=== PATIENT | male | born 1965 | race Caucasian/White ===

== ENCOUNTER → 2018-06-10 | Outpatient (CLI) | payer OTHER ==
[~2018-06-10] MED LIST: ISOVUE-370 76% 100ML VIAL (Q9967) As Ordered
== END ==
LOC: M RAD 15:38
DX: I70.0 Atherosclerosis of aorta (principal); K55.9 Vascular disorder of intestine, unspecified; I10 Essential (primary) hypertension
CPT/HCPCS: Q9967

== ENCOUNTER 2018-10-07 10:31 | Day surgery (SDC) | payer OTHER ==
[~2018-10-07] VITALS: Ht 182.9 cm; Wt 111.6 kg
[~2018-10-07 10:31] MED LIST changes: +ASPI81TA85 PO; +CRES5TAB PO; +FISH7.5C PO; -ISOVUE-370 76% 100ML VIAL (Q9967) As Ordered; +LIDOCAINE 2% INJ 100 MG/5 ML SDV (FOR ANES.) As Ordered ONE; +LISI-1046 PO; +OMEP10CASR PO; +PROPOFOL 200 MG/20 ML VIAL As Ordered ONE; +VITA-183 PO
[2018-10-07] MEDS ORDERED: NS 1,000 ML IV ONE (11:00)
--- NOTE | 2018-10-07 12:50 | ROOR ---
Patient Name: Mckay Velázquez Procedure Date: 10/07/2018 12:08 PM Date of : 1965 Age: 53 Room: [facility] Gender: Male Note Status: Finalized Procedure: Upper GI endoscopy Indications: Heartburn, Suspected gastro-esophageal reflux disease Providers: Zacarias Daley MD Referring MD: YVES MARINELLI MD Requesting Provider: Medicines: Monitored Anesthesia Care Complications: No immediate complications. Procedure: Pre-Anesthesia Assessment: - Prior to the procedure, a History and Physical was performed, and patient medications and allergies were reviewed. The patient is competent. The risks and benefits of the procedure and the sedation options and risks were discussed with the patient. All questions were answered and informed consent was obtained. Patient identification and proposed procedure were verified by the physician, the nurse and the anesthesiologist in the procedure room. Mental Status Examination: alert and oriented. Airway Examination: normal oropharyngeal airway and neck mobility. Respiratory Examination: clear to auscultation. CV Examination: normal. Prophylactic Antibiotics: The patient does not require prophylactic antibiotics. Prior Anticoagulants: The patient has taken no previous anticoagulant or antiplatelet agents. ASA Grade Assessment: II - A patient with mild systemic disease. After reviewing the risks and benefits, the patient was deemed in satisfactory condition to undergo the procedure. The anesthesia plan was to use monitored anesthesia care (MAC). Immediately prior to administration of medications, the patient was re-assessed for adequacy to receive sedatives. The heart rate, respiratory rate, oxygen saturations, blood pressure, adequacy of pulmonary ventilation, and response to care were monitored throughout the procedure. The physical status of the patient was re-assessed after the procedure. The Endoscope was introduced through the mouth, and advanced to the second part of duodenum. The upper GI endoscopy was accomplished without difficulty. The patient tolerated the procedure well. Findings: The Z-line was irregular and was found 41 cm from the incisors. LA Grade A (one or more mucosal breaks less than 5 mm, not extending between tops of 2 mucosal folds) esophagitis with no bleeding was found in the distal esophagus. Biopsies were taken with a cold forceps for histology. Verification of patient identification for the specimen was done by the physician and nurse using the patient's name, date and medical record number. Estimated blood loss was minimal. Diffuse mild inflammation characterized by erythema and granularity was found in the gastric antrum. Biopsies were taken with a cold forceps for Helicobacter pylori testing. The duodenal bulb and second portion of the duodenum were normal. Impression: - Z-line irregular, 41 cm from the incisors. - LA Grade A reflux esophagitis. Rule out Jaramillo's esophagus. Biopsied. - Gastritis. Biopsied. - Normal duodenal bulb and second portion of the duodenum. Recommendation: - Patient has a contact number available for emergencies. The signs and symptoms of potential delayed complications were discussed with the patient. Return to normal activities tomorrow. Written discharge instructions were provided to the patient. - Resume previous diet. - Continue present medications. - Await pathology results. - Follow an antireflux regimen. - Based on the biopsy results you will receive a phone call from GI clinic in 2-3 weeks to review the pathology results AND/OR your results will be faxed to your Primary care physician. - Return to primary care physician. Zacarias Daley MD Zacarias Daley MD 10/07/2018 12:50:12 PM Electronically signed by Zacarias Daley MD Number of Addenda: 0 Note Initiated On: 10/07/2018 12:08 PM Estimated Blood Loss: Estimated blood loss was minimal.
[2018-10-07 13:00] VITALS: BP 135/88
--- NOTE | 2018-10-07 13:24 | ROOR ---
Patient Name: Mckay Velázquez Procedure Date: 10/07/2018 12:09 PM Date of : 1965 Age: 53 Room: [facility] Gender: Male Note Status: Finalized Procedure: Colonoscopy Indications: Screening for colorectal malignant neoplasm Providers: Zacarias Daley MD Referring MD: YVES MARINELLI MD Requesting Provider: Medicines: Monitored Anesthesia Care Complications: No immediate complications. Procedure: Pre-Anesthesia Assessment: - Prior to the procedure, a History and Physical was performed, and patient medications and allergies were reviewed. The patient is competent. The risks and benefits of the procedure and the sedation options and risks were discussed with the patient. All questions were answered and informed consent was obtained. Patient identification and proposed procedure were verified by the physician, the nurse and the anesthesiologist in the procedure room. Mental Status Examination: alert and oriented. Airway Examination: normal oropharyngeal airway and neck mobility. Respiratory Examination: clear to auscultation. CV Examination: normal. Prophylactic Antibiotics: The patient does not require prophylactic antibiotics. Prior Anticoagulants: The patient has taken no previous anticoagulant or antiplatelet agents. ASA Grade Assessment: II - A patient with mild systemic disease. After reviewing the risks and benefits, the patient was deemed in satisfactory condition to undergo the procedure. The anesthesia plan was to use monitored anesthesia care (MAC). Immediately prior to administration of medications, the patient was re-assessed for adequacy to receive sedatives. The heart rate, respiratory rate, oxygen saturations, blood pressure, adequacy of pulmonary ventilation, and response to care were monitored throughout the procedure. The physical status of the patient was re-assessed after the procedure. The Colonoscope was introduced through the anus and advanced to the terminal ileum, with identification of the appendiceal orifice and IC valve. The colonoscopy was performed without difficulty. The patient tolerated the procedure well. The quality of the bowel preparation was good. The terminal ileum, ileocecal valve, appendiceal orifice, and rectum were photographed. Scope insertion time was 3 minutes. Scope withdrawal time was 9 minutes. The total duration of the procedure was 12 minutes. Findings: The perianal and digital rectal examinations were normal. The terminal ileum appeared normal. A few small-mouthed diverticula were found from sigmoid to descending colon. There was no evidence of diverticular bleeding. Non-bleeding external and internal hemorrhoids were found during retroflexion. The hemorrhoids were small. No other significant abnormalities were identified in a careful examination of the remainder of the colon. Impression: - The examined portion of the ileum was normal. - Mild diverticulosis from sigmoid to descending colon. There was no evidence of diverticular bleeding. - Non-bleeding external and internal hemorrhoids. - No specimens collected. Recommendation: - Patient has a contact number available for emergencies. The signs and symptoms of potential delayed complications were discussed with the patient. Return to normal activities tomorrow. Written discharge instructions were provided to the patient. - High fiber diet. - Continue present medications. - Repeat colonoscopy in 10 years for screening purposes. - Return to primary care physician. - Return to GI clinic in 10 years. Zacarias Daley MD Zacarias Daley MD 10/07/2018 1:23:36 PM Electronically signed by Zacarias Daley MD Number of Addenda: 0 Note Initiated On: 10/07/2018 12:09 PM Estimated Blood Loss: Estimated blood loss: none.
== END 2018-10-07 13:40 | disposition home or self-care (01) ==
LOC: M OPP 10:31
PROVIDERS: ATTEND Internal Medicine Gastroenterology
DX: K57.30 Diverticulosis of large intestine without perforation or abscess without bleeding (principal); K64.8 Other hemorrhoids; R12 Heartburn; K22.8 Other specified diseases of esophagus; K21.0 Gastro-esophageal reflux disease with esophagitis; K29.70 Gastritis, unspecified, without bleeding; Z12.11 Encounter for screening for malignant neoplasm of colon

== ENCOUNTER → 2021-12-20 | Outpatient (CLI) | payer OTHER ==
[~2021-12-20] MED LIST changes: -ASPI81TA85 PO; +ASPI81TA86 PO; -LIDOCAINE 2% INJ 100 MG/5 ML SDV (FOR ANES.) As Ordered ONE; -LISI-1046 PO; +LISI2.5T9 PO; -PROPOFOL 200 MG/20 ML VIAL As Ordered ONE
== END ==
LOC: M RAD 12:09
PROVIDERS: ATTEND Internal Medicine Cardiovascular Disease
DX: R09.89 Other specified symptoms and signs involving the circulatory and respiratory systems (principal)

== ENCOUNTER → 2021-12-22 | Outpatient (CLI) | payer OTHER | LOC: M CARPUL 14:14 | PROVIDERS: ATTEND Internal Medicine Cardiovascular Disease | DX: I77.819 Aortic ectasia, unspecified site (principal); I51.7 Cardiomegaly ==

== ENCOUNTER 2022-04-24 10:22 | Observation (INO) | payer OTHER ==
[~2022-04-24] VITALS: Ht 182.9 cm; Wt 115.3 kg
[~2022-04-24 10:22] MED LIST changes: +FISH10005 PO; -FISH7.5C PO
[2022-04-24] MEDS ORDERED: ROSU40TA4 (10:35)
[2022-04-24] MEDS ORDERED: [UNRECOGNIZED DRUG - CODE] (10:35)
[2022-04-24] MEDS ORDERED: FAMO1TAB11 PO (10:35)
[2022-04-24] MEDS ORDERED: OMEP-173 PO (10:35)
[2022-04-24] MEDS ORDERED: LISI10TA22 PO (10:35)
[2022-04-24 12:25] LABS: HEMATOCRIT 45.4 % (42.0-52.0); HEMOGLOBIN 14.9 g/dl (13.5-17.5); MEAN CORPUSCULAR HGB CONC 32.8 g/dl (32.0-36.5); MEAN CORPUSCULAR VOLUME 88.5 fl (80.0-96.0); PLATELET COUNT, AUTOMATED 237 10^3/uL (150-450); RED BLOOD COUNT 5.13 10^6/uL (4.30-6.10); WHITE BLOOD COUNT 5.4 10^3/uL (4.0-10.0)
[2022-04-24 13:05] LABS: EOSINOPHILS 1 % (0-3); LYMPHOCYTES 23 % (16-44); METAMYELOCYTES 3 % (0-0); MONOCYTES 20 % (0-5); NEUTROPHILS 27 % (28-66); PROMYELOCYTES 4 % (0-0)
[2022-04-24 13:06] LABS: PLATELET ESTIMATE NORMAL (NORMAL)
[2022-04-24 13:10] LABS: ALBUMIN 3.2 GM/DL (3.2-5.2); ALT/SGPT 40 U/L (12-78); BILIRUBIN,DIRECT 0.3 MG/DL (0.0-0.2); BLOOD UREA NITROGEN 13 MG/DL (7-18); CALCIUM LEVEL 9.4 MG/DL (8.5-10.1); CARBON DIOXIDE LEVEL 29 MEQ/L (21-32); CHLORIDE LEVEL 105 MEQ/L (98-107); CREATININE FOR GFR 1.11 MG/DL (0.70-1.30); GLOMERULAR FILTRATION RATE > 60.0 (>56); GLUCOSE, FASTING 104 MG/DL (70-100); LIPASE 98 U/L (73-393); POTASSIUM SERUM 3.6 MEQ/L (3.5-5.1); SODIUM LEVEL 141 MEQ/L (136-145); TOTAL PROTEIN 7.1 GM/DL (6.4-8.2)
[2022-04-24] MEDS ORDERED: NS 1,000 ML IV ONE (16:25)
[2022-04-24] MEDS ORDERED: PANTOPRAZOLE 40MG VIAL IV ONE (16:25)
[2022-04-24] MEDS ORDERED: PIPERACILLIN/TAZOBACTAM SOD 4.5 GM in D5W MINI-BAG PLUS 50 ML IV ONE (17:45)
[2022-04-24] MEDS ORDERED: NS 2,390 ML in IV 1 EA IV ONE (17:45)
[2022-04-24] MEDS ORDERED: ISOVUE-370 76% 100ML VIAL As Ordered ONE (18:06)
[2022-04-24] MEDS ORDERED: ASPI81CH33 PO (19:03)
[2022-04-24] MEDS ORDERED: VITA200012 PO (19:03)
[2022-04-24] MEDS ORDERED: HOME MED LIST COMPLETE! XX SCH (19:05)
[2022-04-24] MEDS ORDERED: SUCR1TA PO (20:49)
[2022-04-24 21:39] LABS: RSV AMPLIFICATION NEGATIVE (NEGATIVE)
[2022-04-24] MEDS ORDERED: KETOROLAC 30 MG/ML 1ML VIAL IV PRN (23:20)
[2022-04-24] MEDS ORDERED: ONDANSETRON 4MG 2ML VIAL IV PRN (23:20)
[2022-04-24] MEDS ORDERED: ACETAMINOPHEN TAB 650MG DOSE (2X325MG) PO PRN (23:20)
[2022-04-25] MEDS: LR 1,000 ML IV SCH ×4 (00:11→21:24)
[2022-04-25] MEDS: FAMOTIDINE 20 MG TAB PO SCH ×3 (00:11→21:20)
[2022-04-25 05:55] LABS: HEMATOCRIT 35.2 % (42.0-52.0); MEAN CORPUSCULAR HEMOGLOBIN 29.9 pg (27.0-33.0); MEAN CORPUSCULAR HGB CONC 34.4 g/dl (32.0-36.5); MEAN CORPUSCULAR VOLUME 86.9 fl (80.0-96.0); PLATELET COUNT, AUTOMATED 207 10^3/uL (150-450); RED BLOOD COUNT 4.05 10^6/uL (4.30-6.10)
[2022-04-25 06:00] LABS: HEMOGLOBIN 12.1 g/dl (13.5-17.5)
[2022-04-25 06:22] LABS: BLOOD UREA NITROGEN 12 MG/DL (7-18); CALCIUM LEVEL 8.3 MG/DL (8.5-10.1); CARBON DIOXIDE LEVEL 23 MEQ/L (21-32); CHLORIDE LEVEL 109 MEQ/L (98-107); CREATININE FOR GFR 0.86 MG/DL (0.70-1.30); GLOMERULAR FILTRATION RATE > 60.0 (>56); GLUCOSE, FASTING 92 MG/DL (70-100); MAGNESIUM LEVEL 1.8 MG/DL (1.8-2.4); POTASSIUM SERUM 3.2 MEQ/L (3.5-5.1); SODIUM LEVEL 142 MEQ/L (136-145)
[2022-04-25 08:00] VITALS: BP 161/84
[2022-04-25] MEDS ORDERED: POTASSIUM CHLORIDE 10MEQ SR TABLET PO ONE (08:00)
[2022-04-25] MEDS: ASPIRIN 81 MG CHEW TABLET PO SCH (09:29)
[2022-04-25] MEDS: OMEPRAZOLE 20MG CAP PO SCH (09:29)
[2022-04-25] MEDS: ROSUVASTATIN 10 MG TAB (CRESTOR) PO SCH (09:30)
[2022-04-25 14:00] VITALS: BP 159/83
[2022-04-25 16:55] VITALS: BP 146/91
[2022-04-25] MEDS: AZITHROMYCIN 250MG TABLET PO SCH (18:45)
[2022-04-25 21:00] VITALS: BP 148/90
[2022-04-26 05:38] VITALS: BP 147/92
[2022-04-26] MEDS ORDERED: KETOROLAC 30 MG/ML 1ML VIAL IV ONE (05:50)
[2022-04-26 06:41] LABS: HEMATOCRIT 35.8 % (42.0-52.0); HEMOGLOBIN 12.3 g/dl (13.5-17.5); MEAN CORPUSCULAR HEMOGLOBIN 29.7 pg (27.0-33.0); MEAN CORPUSCULAR HGB CONC 34.4 g/dl (32.0-36.5); MEAN CORPUSCULAR VOLUME 86.5 fl (80.0-96.0); PLATELET COUNT, AUTOMATED 239 10^3/uL (150-450); RED BLOOD COUNT 4.14 10^6/uL (4.30-6.10); WHITE BLOOD COUNT 7.5 10^3/uL (4.0-10.0)
[2022-04-26 07:22] LABS: BLOOD UREA NITROGEN 6 MG/DL (7-18); CALCIUM LEVEL 8.6 MG/DL (8.5-10.1); CARBON DIOXIDE LEVEL 26 MEQ/L (21-32); CHLORIDE LEVEL 109 MEQ/L (98-107); GLOMERULAR FILTRATION RATE > 60.0 (>56); GLUCOSE, FASTING 98 MG/DL (70-100); MAGNESIUM LEVEL 1.8 MG/DL (1.8-2.4); POTASSIUM SERUM 3.5 MEQ/L (3.5-5.1); SODIUM LEVEL 141 MEQ/L (136-145)
[2022-04-26 08:03] LABS: ATYPICAL LYMPH 2 % (0-5); BASOPHILS 2 % (0-1); LYMPHOCYTES 24 % (16-44); METAMYELOCYTES 1 % (0-0); MONOCYTES 11 % (0-5); MYELOCYTES 1 % (0-0); NEUTROPHILS 55 % (28-66)
[2022-04-26 08:05] LABS: PLATELET ESTIMATE NORMAL (NORMAL)
[2022-04-26] MEDS: AZITHROMYCIN 250MG TABLET PO SCH (08:35)
[2022-04-26] MEDS: OMEPRAZOLE 20MG CAP PO SCH (08:35)
[2022-04-26] MEDS: ROSUVASTATIN 10 MG TAB (CRESTOR) PO SCH (08:35)
[2022-04-26] MEDS: FAMOTIDINE 20 MG TAB PO SCH (08:35)
[2022-04-26] MEDS: ASPIRIN 81 MG CHEW TABLET PO SCH (08:35)
[2022-04-26 08:38] VITALS: BP 159/89
[2022-04-26 10:12] LABS: SMUDGE CELLS 1+
[2022-04-26] MEDS ORDERED: POTASSIUM CHLORIDE 10MEQ SR TABLET PO ONE (11:00)
[2022-04-26] MEDS ORDERED: ONDA-83 PO (11:13)
[2022-04-26] MEDS ORDERED: ZITH500T PO (11:13)
== END 2022-04-26 12:30 | disposition home or self-care (01) ==
LOC: M ED 10:22 → M ED INP 10:23 → ENRESERV 04-25 15:00 → M MSPAV 04-25 16:55
PROVIDERS: ADMIT Family Medicine; ATTEND Internal Medicine
DX: A04.5 Campylobacter enteritis (principal); E78.5 Hyperlipidemia, unspecified; I10 Essential (primary) hypertension; G47.30 Sleep apnea, unspecified; K21.9 Gastro-esophageal reflux disease without esophagitis; K44.9 Diaphragmatic hernia without obstruction or gangrene; F41.9 Anxiety disorder, unspecified; Z79.82 Long term (current) use of aspirin; Z79.899 Other long term (current) drug therapy; R19.7 Diarrhea, unspecified
CPT/HCPCS: 36415; 71275; 74018; 74177; 76705; 80048; 80076; 81000; 81015; 83605; 83690; 83735; 85025; 85027; 87040; 87507; 87631; 96361; 96365; 96375; 96376; 99284; C9113; G0378; J1885; J2543; Q9967